=== PATIENT | female | born 1995 | race Caucasian/White ===

== ENCOUNTER 2017-03-26 09:40 | Emergency (ER) | payer OTHER, MEDICAID ==
--- NOTE | ~2017-03-26 | CR173 ---
[facility]. [facility] A Service of [facility] & [facility] RADIOLOGY TEXT RESULTS PATIENT: COREY HAYNES LOCATION: SED : [birth year] UNIT #: [id number] AGE: [address]: Mariano Bar MD SEX: F ORDER DR: [id number] [address] [address] [id number] E MR#: [id number] Acc #: [id number] NAME: COREY HAYNES : 1995 SEX: F STUDY DATE/TIME: 03/26/2017 10:33 UNIT: SED ROOM: STUDY DESCRIPTION: CR Knee 3 Views Rt Attending Physician: Mariano Bar M.D. Ordering Physician: Mariano Bar M.D. Primary Care Physician: No Primary Care Physician MEDICAL IMAGING REPORT This report is preliminary unless electronic signature is present. EXAM Right knee 3 views 03/26/17 1033 hours. HISTORY 21-year-old with history of work injury yesterday, knee pain since yesterday. COMPARISON None. FINDINGS AP, lateral and sunrise views demonstrate mild edema in the subcutaneous tissues anterior to the distal quadriceps tendon just proximal to the patella. There is no knee joint effusion, fracture or joint space loss. IMPRESSION 1. No joint effusion, fracture or joint space loss. 2. Mild subcutaneous edema in the soft tissues anterior to the distal quadriceps tendon just proximal to the patella. Dictated by... Grace Rivera M.D. THIS IS AN ELECTRONICALLY VERIFIED REPORT Grace Rivera M.D. at 03/26/2017 4:01 PM ABILIO/chichi TD: 03/26/2017 12:33 JOB #: [id number] MEDICAL IMAGING REPORT Page 1 of 1
[~2017-03-26 09:40] MED LIST: PREDNISONE PO
[2017-03-26] MEDS ORDERED: DESYREL100 MG PO (09:50)
[2017-03-26] MEDS ORDERED: SERTRALINE HCL100 M1 PO (09:50)
== END 2017-03-26 11:19 | disposition home or self-care (01) ==
LOC: SED 09:40
DX: S80.01XA Contusion of right knee, initial encounter (principal); F32.9 Major depressive disorder, single episode, unspecified; Z88.1 Allergy status to other antibiotic agents; W01.0XXA Fall on same level from slipping, tripping and stumbling without subsequent striking against object, initial encounter; Y93.89 Activity, other specified; Y92.69 Other specified industrial and construction area as the place of occurrence of the external cause; Y99.0 Civilian activity done for income or pay
CPT/HCPCS: 29515; 73562; 99283